=== PATIENT | female | born 1995 | race Caucasian/White ===

== ENCOUNTER 2018-02-13 10:02 | Inpatient (IN) | payer OTHER ==
[2018-02-13 10:17] VITALS: BMI 30.8
--- NOTE | 2018-02-13 10:43 | HP ---
COWS - Scale Resting Pulse: 1= [place] 81-100 Sweatin= Chills/Flushing Restless Observation: 3= Extraneous Movement Pupil Size: 1= Pupils >than Normal Bone or Joint Aches: 2= Severe Diffuse Aches Runny Nose/ Eye Tearin= Runny Nose/Eyes GI Upset > 30mins: 2= Nausea/Diarrhea Tremor Observation: 2= Slight Tremor Visible Yawning Observation: 1= 1-2x During Session Anxiety or Irritability: 2=Irritable/Anxious Goose Flesh Skin: 0=Smooth Skin COWS Score: 17 Admission [facility] Chief Complaint: i eed help to stop using heroin Allergies/Adverse Reactions: Allergies Allergy/AdvReac Type Severity Reaction Status Date / Time bupropion HCl Allergy Severe seizure Verified 02/13/18 10:35 [From Wellbutrin] History of Present Illness: this 23 years old female with heroin dependence,seeking detox,withdrawal symptom ,use to be on suboxone 8 mgs/2 mgs bid but did not take it for 2 weeks last treatment [facility] 12/01/14 to 12/06/14 also taking klonopin anxiety,depression,insomnia nicotine dependence longest period of sobriety 1 and half year hard of hearing for 2 years right Exam Limitations: No Limitations - Ebola screening Have you traveled outside of the country in the last 21 days: No Have you had contact with anyone from an Ebola affected area: No Have you been sick,other than usual withdrawal symptoms: No Do you have a fever: No - Review of Systems Constitutional: Chills, Loss of Appetite, Malaise, Night Sweats, Changes in sleep, Weakness EENT: reports: Tearing, Nose Congestion Respiratory: reports: No Symptoms reported Cardiac: reports: Palpitations GI: reports: Nausea, Poor Appetite, Vomiting, Abdominal cramping : reports: No Symptoms Reported Musculoskeletal: reports: Back Pain, Joint Pain, Joint Stiffness Integumentary: reports: Dryness Neuro: reports: Headache, Tremors Endocrine: reports: No Symptoms Reported Hematology: reports: No Symptoms Reported Psychiatric: reports: No Sypmtoms Reported, Judgement Intact, Mood/Affect Appropiate, Orientated x3, Agitated, Depressed Patient History - Patient Medical History Hx Anemia: No Hx Asthma: No Hx Chronic Obstructive Pulmonary Disease (COPD): No Hx Cancer: No Hx Cardiac Disorders: No Hx Congestive Heart Failure: No Hx Hypertension: No Hx Hypercholesterolemia: No Hx Pacemaker: No HX Cerebrovascular Accident: No Hx Seizures: Yes (1 month ago) Hx Dementia: No Hx Diabetes: No Hx Gastrointestinal Disorders: No Hx Liver Disease: No Hx Genitourinary Disorders: No Hx Sexually Transmitted Disorders: No Hx Renal Disease (ESRD): No Hx Thyroid Disease: No Hx Human Immunodeficiency Virus (HIV): No (negative) Hx Hepatitis C: Yes (no treatment) Hx Depression: Yes Hx Suicide Attempt: Yes (cutter) Hx Bipolar Disorder: No Hx Schizophrenia: No Other Medical History: no suicidal,no homicidal - Patient Surgical History Past Surgical History: No Hx Neurologic Surgery: No Hx Cataract Extraction: No Hx Cardiac Surgery: No Hx Lung Surgery: No Hx Breast Surgery: No Hx Breast Biopsy: No Hx Abdominal Surgery: No Hx Appendectomy: No Hx Cholecystectomy: No Hx Genitourinary Surgery: No Hx Section: No Hx Orthopedic Surgery: No Anesthesia Reaction: No - PPD History Previous Implant?: Yes Documented Results: Negative w/o proof Date: 08/01/14 Results: 0 mm PPD to be Administered?: Yes - Reproductive History Patient is a Female of Child Bearing Age (11 -55 yrs old): Yes Last Menstrual Period: 01/14/18 Patient : No - Smoking Cessation Smoking history: Current every day smoker Have you smoked in the past 12 months: Yes Aproximately how many cigarettes per day: 20 Hx Chewing Tobacco Use: No Initiated information on smoking cessation: Yes 'Breaking Loose' booklet given: 02/13/18 - Substance & Tx. History Hx Alcohol Use: No Hx Substance Use: Yes Substance Use Type: Heroin, Tranquilizers Hx Substance Use Treatment: Yes ([facility] 12/01/14 to 12/06/14) - Substances Abused Heroin Route: Injection Frequency: Daily Amount used: 10-15 bags Age of first use: 14 Date of Last Use: 02/12/18 Benzodiazepine (Klonopin) Route: Oral Frequency: 3-6 times per week Amount used: 2-4mg Age of first use: 23 Date of Last Use: 02/12/18 Family Disease History - Family Disease History Family Disease History: Diabetes: Father Admission Physical Exam BHS - Vital Signs Vital Signs: Vital Signs - 24 hr 02/13/18 10:10 Temperature 96.5 F L Pulse Rate 90 Respiratory 18 Rate Blood Pressure 116/67 - Physical General Appearance: Yes: Moderate Distress, Tremorous, Irritable, Sweating, Anxious HEENTM: Yes: Normal ENT Inspection, [place], Pharynx Normal Respiratory: Yes: Lungs Clear, Normal Breath Sounds, No Respiratory Distress Neck: Yes: Within Normal Limits, Supple, Trachea in good position Breast: Yes: Breast Exam Deferred Cardiology: Yes: Within Normal Limits, Regular Rhythm, Regular Rate, S1, S2 Abdominal: Yes: Within Normal Limits, Normal Bowel Sounds, Non Tender, Flat, Soft Genitourinary: Yes: Within Normal Limits Back: Yes: Muscle Spasm Musculoskeletal: Yes: Back pain, Joint Stiffness, Muscle Pain Extremities: Yes: Within Normal Limits, Normal Range of Motion, Tremors Neurological: Yes: gluer and slicer hand II-XII NML intact, Fully Oriented, Alert, Motor Strength 5/5 Integumentary: Yes: Dry, Track Hussein - Diagnostic (1) Opioid dependence with withdrawal Current Visit: Yes Status: Acute (2) Hepatitis C Current Visit: No Status: Acute (3) Nicotine dependence Current Visit: No Status: Chronic (4) Uncomplicated sedative, hypnotic or anxiolytic withdrawal Current Visit: Yes Status: Acute (5) Withdrawal seizures Current Visit: Yes Status: Acute (6) Depression Current Visit: Yes Status: Acute Cleared for Admission [facility] - Detox or Rehab [facility] Level of Care: Medically Managed Detox Regimen/Protocol: Methadone [facility] Breath Alcohol Content Breath Alcohol Content: 0 Urine Pregancy Test - Result Urine Test Results: Negative- NO Line Present Urine Drug Screen - Results Drug Screen Negative: No Urine Drug Screen Results: THC-Marijuana, OPI-Opiates, OXY-Oxycodone
[2018-02-13] MEDS ORDERED: ACETAMINOPHEN 325 MG TABLET (FP) PO PRN (10:54)
[2018-02-13] MEDS ORDERED: MAGNESIUM HYDROX 2400MG/30ML ORAL SUSPENSION 30 ML CUP PO PRN (10:54)
[2018-02-13] MEDS ORDERED: MAGNESIUM CITRATE 300 ML BOTTLE PO PRN (10:54)
[2018-02-13] MEDS ORDERED: MAG HYDROX/AL HYDROX/SIMETH 30 ML UNIT-DOSE CUP PO PRN (10:54)
[2018-02-13] MEDS ORDERED: IBUPROFEN 400 MG TABLET (FP) PO PRN (10:54)
[2018-02-13] MEDS ORDERED: MENTHOL/PHENOL 1 EACH UD MM PRN (10:54)
[2018-02-13] MEDS ORDERED: P-EPHED 60MG/TRIPROLIDI 2.5MG TABLET PO PRN (10:54)
[2018-02-13] MEDS ORDERED: guaiFENesin/D-METHORPHAN HB 10 ML UNIT-DOSE CUPS PO PRN (10:54)
[2018-02-13] MEDS ORDERED: METHADONE HCL 10 MG TABLET (FOR DETOX USE ONLY) PO ONE ×2 (11:35→23:00)
[2018-02-13] MEDS: CYCLOBENZAPRINE HCL 10 MG TABLET (FP) PO PRN ×2 (12:18→22:22)
[2018-02-13] MEDS: diazePAM 5 MG TABLET PO PRN ×3 (12:18→22:22)
--- NOTE | 2018-02-13 12:53 | CONSULT ---
[facility] Psychiatric Consult - Data Date of interview: 02/13/18 Admission source: [facility] Identifying data: Patient is a 23 year old single female, without children, domiciled,and is currently unemployed (took leave of absense). This is one of multiple admissions for patient. Patient admitted to for opiate and benzodiazepine dependence. Substance Abuse History: - Smoking Cessation. Smoking history: Current every day smoker. Have you smoked in the past 12 months: Yes. Aproximately how many cigarettes per day: 20. Hx Chewing Tobacco Use: No. Initiated information on smoking cessation: Yes. 'Breaking Loose' booklet given: 02/13/18. - Substance & Tx. History. Hx Alcohol Use: No. Hx Substance Use: Yes. Substance Use Type : Heroin, Tranquilizers. Hx Substance Use Treatment: Yes ([facility] 12[facility] Heorin: uses 12 bags daily. Benzodiazepine- klonopin 4-5mg couple times per week. Medical History: Seizures, Hep C Psychiatric History: Patient's first psychiatric contact was approximately 4-5 years for anxiety and depression in [facility]. Current outpatient psychiatric care is provided AT[facility] in [facility]. She is prescribed prozac 40mg + Gabapentin 300mg BID. Patient reports sub-optimal adherence to medication. Patient denies h/o psychiatric hospitalization and suicide attempt. Patient currently reports feeling sad and anxious. Physical/Sexual Abuse/Trauma History: denies. Mental Status Exam - Mental Status Exam Alert and Oriented to: Time, Place, Person Cognitive Function: Good Patient Appearance: Well Groomed Mood: Hopeful Affect: Appropriate, Mood Congruent Patient Behavior: Appropriate, Cooperative Speech Pattern: Clear, Appropriate Voice Loudness: Normal Thought Process: Intact, Goal Oriented Thought Disorder: Not Present Hallucinations: Denies Suicidal Ideation: Denies Homicidal Ideation: Denies Insight/Judgement: Poor Sleep: Fair Appetite: Fair Muscle strength/Tone: Normal Gait/Station: Normal Psychiatric Findings - Problem List ([place] 1, 2,3) (1) Opioid dependence with withdrawal Current Visit: Yes Status: Acute (2) Substance induced mood disorder Current Visit: Yes Status: Acute (3) Opiate dependence Current Visit: Yes Status: Acute - Initial Treatment Plan Initial Treatment Plan: Psychoeducation provided. Detoxification in progress. Will order prozac 20mg (reduce dose as per patient's request. will start on 02/14) and Gabapentin 300mg BID. Benefits and side effects discussed. Verbal consent given.
[2018-02-13] MEDS: GABAPENTIN 300 MG CAPSULE (FP) PO SCH ×2 (13:47→22:22)
[2018-02-13 18:11] LABS: URINE APPEARANCE SLCLOUDY; URINE BILIRUBIN NEGATIVE (<2.0 mg/dL); URINE COLOR DKYELLOW; URINE GLUCOSE (UA) NEGATIVE (NEGATIVE); URINE KETONE NEGATIVE (NEGATIVE); URINE LEUK ESTERASE TRACE (NEGATIVE); URINE NITRITE NEGATIVE (NEGATIVE); URINE PROTEIN NEGATIVE (NEGATIVE); URINE UROBILINOGEN NEGATIVE mg/dL (0.2-1.0)
[2018-02-13 18:52] LABS: EPI CELLS MODERATE /HPF (FEW); URINE BACTERIA FEW /hpf (NONE SEEN); URINE HYALINE CAST 1 /lpf; URINE MUCUS MODERATE
[2018-02-13] MEDS ORDERED: MELATONIN 5 MG TABLETS PO PRN (22:00)
[2018-02-13] MEDS: cloNIDine HCL 0.1 MG TABLET PO SCH (22:22)
[2018-02-13] MEDS: THIAMINE HCL 100 MG TABLET (FP) PO SCH (22:23)
[2018-02-14] MEDS ORDERED: METHADONE HCL 10 MG TABLET (FOR DETOX USE ONLY) PO ONE (10:00)
[2018-02-14 10:25] LABS: HEMATOCRIT 40.2 % (32.4-45.2); HEMOGLOBIN 13.3 GM/dL (10.7-15.3); MCH 28.8 pg (25.7-33.7); MCHC 33.2 g/dl (32.0-36.0); MEAN CELL VOLUME 86.7 fl (80-96); MEAN PLT VOLUME 9.1 fl (7.5-11.1); PLATELET COUNT 189 K/MM3 (134-434); RBC 4.63 M/mm3 (3.60-5.2); RDW 13.8 % (11.6-15.6); WHITE BLOOD COUNT 5.3 K/mm3 (4.0-10.0)
[2018-02-14] MEDS: PRENATAL VITAMINS W/ FOLIC ACID TABLET (FP) PO SCH (10:39)
[2018-02-14] MEDS: cloNIDine HCL 0.1 MG TABLET PO SCH ×2 (10:39→21:51)
[2018-02-14] MEDS: diazePAM 5 MG TABLET PO PRN ×3 (10:39→22:35)
[2018-02-14] MEDS: FLUoxetine HCL 20 MG CAPSULE (FP) PO SCH (10:39)
[2018-02-14] MEDS: GABAPENTIN 300 MG CAPSULE (FP) PO SCH ×2 (10:39→22:33)
[2018-02-14 11:05] LABS: ALBUMIN 3.7 g/dl (3.4-5.0); ALK PHOS 129 U/L (45-117); ANION GAP 11 MMOL/L (8-16); BILIRUBIN,TOTAL 0.4 mg/dL (0.2-1); BLOOD UREA NITROGEN 12 mg/dL (7-18); CALCIUM 9.4 mg/dL (8.5-10.1); CHLORIDE 105 mmol/L (98-107); CO2 23 mmol/L (21-32); CREATININE 0.8 mg/dL (0.55-1.3); GLUCOSE,RANDOM 81 mg/dL (74-106); POTASSIUM 4.3 mmol/L (3.5-5.1); SGOT/AST 24 U/L (15-37); SGPT/ALT 62 U/L (13-61); SODIUM 138 mmol/L (136-145); TOT PROT 7.4 g/dl (6.4-8.2)
--- NOTE | 2018-02-14 11:07 | EKG ---
Test Reason : Blood Pressure : / mmHG Vent. Rate : 071 BPM Atrial Rate : 071 BPM P-R Int : 152 ms QRS Dur : 084 ms QT Int : 410 ms P-R-T Axes : 054 031 034 degrees QTc Int : 445 ms NORMAL SINUS RHYTHM NORMAL ECG NO PREVIOUS ECGS AVAILABLE Confirmed by Getachew Chong MD ([id number]) on 02/14/2018 11:07:18 AM Referred By: Confirmed By:Getachew Chong MD
--- NOTE | 2018-02-14 12:01 | PN ---
S COWS - Scale Resting Pulse: 0= [place] 80 or Below Sweatin=Flushed/Facial Moisture Restless Observation: 1= Difficult to Sit Still Pupil Size: 0= Normal to Room Light Bone or Joint Aches: 2= Severe Diffuse Aches Runny Nose/ Eye Tearin= Runny Nose/Eyes GI Upset > 30mins: 2= Nausea/Diarrhea Tremor Observation of Outstretched Hands: 2= Slight Tremor Visible Yawning Observation: 1= 1-2x During Session Anxiety or Irritability: 2=Irritable/Anxious Goose Flesh Skin: 3=Piloerection COWS Score: 17 S Progress Note (SOAP) Subjective: irritable agitation teary eyes sweats body aches interrupted sleep Objective: 02/14/18 12:00 Vital Signs Temperature 98.1 F 02/14/18 09:25 Pulse Rate 65 02/14/18 09:25 Respiratory Rate 18 02/14/18 09:25 Blood Pressure 108/66 02/14/18 09:25 O2 Sat by Pulse Oximetry (%) Laboratory Tests 02/13/18 02/13/18 02/14/18 11:50 15:25 06:00 WBC 5.3 RBC 4.63 Hgb 13.3 Hct 40.2 MCV 86.7 MCH 28.8 MCHC 33.2 RDW 13.8 Plt Count 189 D MPV 9.1 Sodium Potassium Chloride Carbon Dioxide Anion Gap BUN Creatinine Creat Clearance w eGFR Random Glucose Calcium Total Bilirubin AST ALT Alkaline Phosphatase Total Protein Albumin Urine Color Dkyellow Urine Appearance Slcloudy Urine pH 5.0 Ur Specific [place] 1.024 Urine Protein Negative Urine Glucose (UA) Negative Urine Ketones Negative Urine Blood Negative Urine Nitrite Negative Urine Bilirubin Negative Urine Urobilinogen Negative Ur Leukocyte Esterase Trace Urine WBC (Auto) 25 Urine RBC (Auto) 1 Ur Epithelial Cells Moderate Urine Bacteria Few Hyaline Casts 1 Urine Mucus Moderate RPR Titer HIV 1&2 Antibody Screen Negative HIV P24 Antigen Negative 02/14/18 02/14/18 06:00 06:00 WBC RBC Hgb Hct MCV MCH MCHC RDW Plt Count MPV Sodium 138 Potassium 4.3 Chloride 105 Carbon Dioxide 23 Anion Gap 11 BUN 12 Creatinine 0.8 Creat Clearance w eGFR > 60 Random Glucose 81 Calcium 9.4 Total Bilirubin 0.4 AST 24 ALT 62 H Alkaline Phosphatase 129 H Total Protein 7.4 Albumin 3.7 Urine Color Urine Appearance Urine pH Ur Specific [place] Urine Protein Urine Glucose (UA) Urine Ketones Urine Blood Urine Nitrite Urine Bilirubin Urine Urobilinogen Ur Leukocyte Esterase Urine WBC (Auto) Urine RBC (Auto) Ur Epithelial Cells Urine Bacteria Hyaline Casts Urine Mucus RPR Titer Nonreactive HIV 1&2 Antibody Screen HIV P24 Antigen aaox3 ambulating no acute distress Assessment: 02/14/18 12:00 withdrawal sx Plan: continue detox increase fluids
[2018-02-14] MEDS: THIAMINE HCL 100 MG TABLET (FP) PO SCH (22:33)
[2018-02-14] MEDS: CYCLOBENZAPRINE HCL 10 MG TABLET (FP) PO PRN (22:36)
[2018-02-15] MEDS ORDERED: METHADONE HCL 5 MG TABLET (FOR DETOX USE ONLY) PO ONE (10:00)
[2018-02-15] MEDS: diazePAM 5 MG TABLET PO PRN ×4 (10:09→22:56)
[2018-02-15] MEDS: cloNIDine HCL 0.1 MG TABLET PO SCH ×2 (10:10→22:23)
[2018-02-15] MEDS: GABAPENTIN 300 MG CAPSULE (FP) PO SCH ×2 (10:10→22:24)
[2018-02-15] MEDS: PRENATAL VITAMINS W/ FOLIC ACID TABLET (FP) PO SCH (10:10)
[2018-02-15] MEDS: FLUoxetine HCL 20 MG CAPSULE (FP) PO SCH (10:10)
--- NOTE | 2018-02-15 11:53 | PN ---
[facility] COWS - Scale Resting Pulse: 0= [place] 80 or Below Sweatin=Flushed/Facial Moisture Restless Observation: 1= Difficult to Sit Still Pupil Size: 0= Normal to Room Light Bone or Joint Aches: 2= Severe Diffuse Aches Runny Nose/ Eye Tearin= Nasal Congestion GI Upset > 30mins: 1= Stomach Cramp Tremor Observation of Outstretched Hands: 2= Slight Tremor Visible Yawning Observation: 1= 1-2x During Session Anxiety or Irritability: 2=Irritable/Anxious Goose Flesh Skin: 3=Piloerection COWS Score: 15 BHS Progress Note (SOAP) Subjective: restless agitation anxiety sweats irritable stomach cramp Objective: 02/15/18 11:52 Vital Signs Temperature 98.1 F 02/15/18 09:13 Pulse Rate 69 02/15/18 09:13 Respiratory Rate 18 02/15/18 09:13 Blood Pressure 106/56 L 02/15/18 09:13 O2 Sat by Pulse Oximetry (%) Laboratory Tests 02/13/18 02/13/18 02/14/18 11:50 15:25 06:00 WBC 5.3 RBC 4.63 Hgb 13.3 Hct 40.2 MCV 86.7 MCH 28.8 MCHC 33.2 RDW 13.8 Plt Count 189 D MPV 9.1 Sodium Potassium Chloride Carbon Dioxide Anion Gap BUN Creatinine Creat Clearance w eGFR Random Glucose Calcium Total Bilirubin AST ALT Alkaline Phosphatase Total Protein Albumin Urine Color Dkyellow Urine Appearance Slcloudy Urine pH 5.0 Ur Specific [place] 1.024 Urine Protein Negative Urine Glucose (UA) Negative Urine Ketones Negative Urine Blood Negative Urine Nitrite Negative Urine Bilirubin Negative Urine Urobilinogen Negative Ur Leukocyte Esterase Trace Urine WBC (Auto) 25 Urine RBC (Auto) 1 Ur Epithelial Cells Moderate Urine Bacteria Few Hyaline Casts 1 Urine Mucus Moderate RPR Titer HIV 1&2 Antibody Screen Negative HIV P24 Antigen Negative 02/14/18 02/14/18 06:00 06:00 WBC RBC Hgb Hct MCV MCH MCHC RDW Plt Count MPV Sodium 138 Potassium 4.3 Chloride 105 Carbon Dioxide 23 Anion Gap 11 BUN 12 Creatinine 0.8 Creat Clearance w eGFR > 60 Random Glucose 81 Calcium 9.4 Total Bilirubin 0.4 AST 24 ALT 62 H Alkaline Phosphatase 129 H Total Protein 7.4 Albumin 3.7 Urine Color Urine Appearance Urine pH Ur Specific [place] Urine Protein Urine Glucose (UA) Urine Ketones Urine Blood Urine Nitrite Urine Bilirubin Urine Urobilinogen Ur Leukocyte Esterase Urine WBC (Auto) Urine RBC (Auto) Ur Epithelial Cells Urine Bacteria Hyaline Casts Urine Mucus RPR Titer Nonreactive HIV 1&2 Antibody Screen HIV P24 Antigen aaox3 ambulating no acute distress Assessment: 02/15/18 11:53 withdrawal sx Plan: continue detox increase fluids
[2018-02-15] MEDS: NICOTINE POLACRILEX 2 MG GUM BUC PRN ×2 (14:46→17:34)
[2018-02-15] MEDS: CYCLOBENZAPRINE HCL 10 MG TABLET (FP) PO PRN (22:24)
[2018-02-15] MEDS: THIAMINE HCL 100 MG TABLET (FP) PO SCH (22:24)
--- NOTE | 2018-02-16 09:43 | PN ---
[facility] Progress Note Note: Vital Signs Temperature 97.7 F 02/16/18 06:50 Pulse Rate 62 02/16/18 06:50 Respiratory Rate 16 02/16/18 06:50 Blood Pressure 107/44 L 02/16/18 06:50 O2 Sat by Pulse Oximetry (%) Laboratory Last Values WBC 5.3 K/mm3 (4.0-10.0) 02/14/18 06:00 RBC 4.63 M/mm3 (3.60-5.2) 02/14/18 06:00 Hgb 13.3 GM/dL (10.7-15.3) 02/14/18 06:00 Hct 40.2 % (32.4-45.2) 02/14/18 06:00 MCV 86.7 fl (80-96) 02/14/18 06:00 MCH 28.8 pg (25.7-33.7) 02/14/18 06:00 MCHC 33.2 g/dl (32.0-36.0) 02/14/18 06:00 RDW 13.8 % (11.6-15.6) 02/14/18 06:00 Plt Count 189 K/MM3 (134-434) D 02/14/18 06:00 MPV 9.1 fl (7.5-11.1) 02/14/18 06:00 Sodium 138 mmol/L (136-145) 02/14/18 06:00 Potassium 4.3 mmol/L (3.5-5.1) 02/14/18 06:00 Chloride 105 mmol/L (98-107) 02/14/18 06:00 Carbon Dioxide 23 mmol/L (21-32) 02/14/18 06:00 Anion Gap 11 MMOL/L (8-16) 02/14/18 06:00 BUN 12 mg/dL (7-18) 02/14/18 06:00 Creatinine 0.8 mg/dL (0.55-1.3) 02/14/18 06:00 Creat Clearance w eGFR > 60 (>60) 02/14/18 06:00 Random Glucose 81 mg/dL (74-106) 02/14/18 06:00 Calcium 9.4 mg/dL (8.5-10.1) 02/14/18 06:00 Total Bilirubin 0.4 mg/dL (0.2-1) 02/14/18 06:00 AST 24 U/L (15-37) 02/14/18 06:00 ALT 62 U/L (13-61) H 02/14/18 06:00 Alkaline Phosphatase 129 U/L (45-117) H 02/14/18 06:00 Total Protein 7.4 g/dl (6.4-8.2) 02/14/18 06:00 Albumin 3.7 g/dl (3.4-5.0) 02/14/18 06:00 Urine Color Dkyellow 02/13/18 15:25 Urine Appearance Slcloudy 02/13/18 15:25 Urine pH 5.0 (5.0-8.0) 02/13/18 15:25 Ur Specific [place] 1.024 (1.001-1.035) 02/13/18 15:25 Urine Protein Negative (NEGATIVE) 02/13/18 15:25 Urine Glucose (UA) Negative (NEGATIVE) 02/13/18 15:25 Urine Ketones Negative (NEGATIVE) 02/13/18 15:25 Urine Blood Negative (NEGATIVE) 02/13/18 15:25 Urine Nitrite Negative (NEGATIVE) 02/13/18 15:25 Urine Bilirubin Negative (<2.0 mg/dL) 02/13/18 15:25 Urine Urobilinogen Negative mg/dL (0.2-1.0) 02/13/18 15:25 Ur Leukocyte Esterase Trace (NEGATIVE) 02/13/18 15:25 Urine WBC (Auto) 25 /hpf (3-5) 02/13/18 15:25 Urine RBC (Auto) 1 /hpf (0-3) 02/13/18 15:25 Ur Epithelial Cells Moderate /HPF (FEW) 02/13/18 15:25 Urine Bacteria Few /hpf (NONE SEEN) 02/13/18 15:25 Hyaline Casts 1 /lpf 02/13/18 15:25 Urine Mucus Moderate 02/13/18 15:25 RPR Titer Nonreactive (NONREACTIVE) 02/14/18 06:00 HIV 1&2 Antibody Screen Negative 02/13/18 11:50 HIV P24 Antigen Negative 02/13/18 11:50 Patient feeling anxious, body aches, constipation Aox3 no distress no adventitious breath sounds ABD non-tender, non- distended full ROM, ambulating in the unit withdrawal sx constipation Increase PO fluids MOM ambulate flexeril PRN continue detox continue to monitor
[2018-02-16] MEDS ORDERED: METHADONE HCL 5 MG TABLET (FOR DETOX USE ONLY) PO ONE (10:00)
[2018-02-16] MEDS: GABAPENTIN 300 MG CAPSULE (FP) PO SCH ×2 (10:33→22:23)
[2018-02-16] MEDS: cloNIDine HCL 0.1 MG TABLET PO SCH ×2 (10:33→22:23)
[2018-02-16] MEDS: FLUoxetine HCL 20 MG CAPSULE (FP) PO SCH (10:33)
[2018-02-16] MEDS: PRENATAL VITAMINS W/ FOLIC ACID TABLET (FP) PO SCH (10:33)
[2018-02-16] MEDS: CYCLOBENZAPRINE HCL 10 MG TABLET (FP) PO PRN ×2 (10:33→22:23)
[2018-02-16] MEDS: diazePAM 5 MG TABLET PO PRN (10:36)
[2018-02-16] MEDS: hydrOXYzine PAMOATE 50 MG CAPSULE (FP) PO PRN ×2 (13:45→22:22)
[2018-02-16] MEDS: BACITRACIN 0.9 GM PACKET TP SCH ×2 (14:31→22:22)
--- NOTE | 2018-02-16 14:40 | PN ---
Psychiatric Progress Note Vital Signs: Vital Signs Period Temp Pulse Resp BP Sys/Montero Pulse Ox Last 24 Hr 97.7 F-99 F 62-134 16-20 90-107/44-72 Date of Session: 02/16/18 Chief Complaint:: "I can't sleep." HPI: Patient admitted to for opiate and benzodiazepine dependence. ROS: Seizures, Hep C Current Medications: Active Medications Generic Name Dose Route Start Last Admin Trade Name Freq PRN Reason Stop Dose Admin Acetaminophen 650 mg 02/13/18 10:54 Tylenol - PO Q4H PRN FEVER Al Hydroxide/Mg Hydroxide 30 ml 02/13/18 10:54 Mylanta Oral Suspension - PO Q6H PRN DYSPEPSIA Bacitracin 0.9 gm 02/16/18 14:15 02/16/18 14:31 Bacitracin - TP 0.9 gm TID EARL Administration Clonidine 0.1 mg 02/13/18 22:00 02/16/18 10:33 Catapres - PO 0.1 mg BID EARL Administration Cyclobenzaprine HCl 10 mg 02/13/18 10:58 02/16/18 10:33 Flexeril - PO 10 mg TID PRN Administration MUSCLE SPASMS Eucalyptus/Menthol/Phenol/Sorbitol 1 each 02/13/18 10:54 Cepastat Lozenge - MM Q4H PRN SORE THROAT Fluoxetine HCl 20 mg 02/14/18 10:00 02/16/18 10:33 Prozac - PO 20 mg DAILY EARL Administration Gabapentin 300 mg 02/13/18 14:00 02/16/18 10:33 Neurontin - PO 300 mg BID EARL Administration Guaifenesin 10 ml 02/13/18 10:54 Robitussin Dm - PO Q6H PRN COUGH Hydroxyzine Pamoate 50 mg 02/16/18 08:47 02/16/18 13:45 Vistaril - PO 50 mg Q4H PRN Administration FOR ITCHING Ibuprofen 400 mg 02/13/18 10:54 Motrin - PO Q6H PRN PAIN LEVEL 4-6 Loperamide HCl 4 mg 02/13/18 10:54 Imodium - PO Q6H PRN DIARRHEA Magnesium Citrate 300 ml 02/13/18 10:54 Citroma - PO Q48H PRN CONSTIPATION Magnesium Hydroxide 30 ml 02/13/18 10:54 Milk Of Magnesia - PO DAILY PRN CONSTIPATION Melatonin 5 mg 02/13/18 22:00 02/15/18 22:25 Melatonin PO 5 mg HS PRN Administration INSOMNIA Methadone HCl 5 mg 02/18/18 06:00 Dolophine - PO 02/18/18 06:01 ONCE@0600 ONE Methadone HCl 10 mg 02/17/18 10:00 Dolophine - PO 02/17/18 10:01 ONCE ONE Nicotine Polacrilex 2 mg 02/13/18 10:54 02/15/18 17:34 Nicorette Gum - BUC 2 mg Q2H PRN Administration NICOTINE REPLACEMENT RX Multivit/Folic Acid/Iron 1 tab 02/14/18 10:00 02/16/18 10:33 Vitamins (Sjr) - PO 1 tab DAILY EARL Administration Pseudoephedrine/Triprolidine 1 combo 02/13/18 10:54 Actifed - PO TID PRN NASAL CONGESTION Thiamine HCl 100 mg 02/13/18 22:00 02/15/18 22:24 Vitamin B1 - PO 100 mg HS EARL Administration Medication(s) Change(s): Yes. Will d/c melatonin 3mg and order ambien 10mg qhs. Current Side Effect: No Lab tests ordered: No Lab tests reviewed: Yes Provider note:: Chart reviewed. Patient c/o poor sleep. Will discontinue melatonin 5mg. Pt. reports favorable effects when taking ambien. She has been prescribed ambien 10mg while in detox. Will order ambien 10mg qhs prn. Patient made aware of the risk of parasomnia. Verbal consent given. Total face to face time:: 25 Mental Status Exam - Mental Status Exam Alert and Oriented to: Time, Place, Person Cognitive Function: Good Patient Appearance: Well Groomed Mood: Hopeful, Euthymic Affect: Appropriate, Mood Congruent Patient Behavior: Appropriate, Cooperative Speech Pattern: Appropriate Voice Loudness: Normal Thought Process: Intact, Goal Oriented Thought Disorder: Not Present Hallucinations: Denies Suicidal Ideation: Denies Homicidal Ideation: Denies Insight/Judgement: Poor Sleep: Poorly Appetite: Fair Muscle strength/Tone: Normal Gait/Station: Normal Psychiatric Treatment Plan - Problem List (1) Opioid dependence with withdrawal Current Visit: Yes (2) Substance induced mood disorder Current Visit: Yes (3) Opiate dependence Current Visit: Yes (4) Insomnia Current Visit: Yes
[2018-02-16] MEDS: NICOTINE POLACRILEX 2 MG GUM BUC PRN (16:40)
[2018-02-16] MEDS: ZOLPIDEM TARTRATE 10 MG TABLET (PARK CARE ONLY) PO PRN (22:22)
[2018-02-16] MEDS: THIAMINE HCL 100 MG TABLET (FP) PO SCH (22:23)
[2018-02-17] MEDS: CYCLOBENZAPRINE HCL 10 MG TABLET (FP) PO PRN (05:37)
[2018-02-17] MEDS: BACITRACIN 0.9 GM PACKET TP SCH ×2 (05:37→22:33)
[2018-02-17] MEDS: hydrOXYzine PAMOATE 50 MG CAPSULE (FP) PO PRN ×4 (05:38→22:34)
[2018-02-17] MEDS ORDERED: METHADONE HCL 10 MG TABLET (FOR DETOX USE ONLY) PO ONE (10:00)
[2018-02-17] MEDS: FLUoxetine HCL 20 MG CAPSULE (FP) PO SCH (10:39)
[2018-02-17] MEDS: GABAPENTIN 300 MG CAPSULE (FP) PO SCH ×2 (10:39→22:33)
[2018-02-17] MEDS: cloNIDine HCL 0.1 MG TABLET PO SCH ×2 (10:39→22:33)
[2018-02-17] MEDS: PRENATAL VITAMINS W/ FOLIC ACID TABLET (FP) PO SCH (10:40)
[2018-02-17] MEDS: LOPERAMIDE HCL 2 MG CAPSULE PO PRN ×2 (10:42→17:45)
--- NOTE | 2018-02-17 13:54 | PN ---
[facility] Progress Note Note: PATIENT REPORTS SHE FEELS BETTER. DENIES HEADACHE, SHAKES, BODY ACHE AND SWEATING. Vital Signs Temperature 97.7 F 02/17/18 09:32 Pulse Rate 67 02/17/18 09:32 Respiratory Rate 18 02/17/18 09:32 Blood Pressure 114/71 02/17/18 09:32 O2 Sat by Pulse Oximetry (%) Laboratory Tests 02/13/18 02/13/18 02/14/18 11:50 15:25 06:00 WBC 5.3 RBC 4.63 Hgb 13.3 Hct 40.2 MCV 86.7 MCH 28.8 MCHC 33.2 RDW 13.8 Plt Count 189 D MPV 9.1 Sodium Potassium Chloride Carbon Dioxide Anion Gap BUN Creatinine Creat Clearance w eGFR Random Glucose Calcium Total Bilirubin AST ALT Alkaline Phosphatase Total Protein Albumin Urine Color Dkyellow Urine Appearance Slcloudy Urine pH 5.0 Ur Specific [place] 1.024 Urine Protein Negative Urine Glucose (UA) Negative Urine Ketones Negative Urine Blood Negative Urine Nitrite Negative Urine Bilirubin Negative Urine Urobilinogen Negative Ur Leukocyte Esterase Trace Urine WBC (Auto) 25 Urine RBC (Auto) 1 Ur Epithelial Cells Moderate Urine Bacteria Few Hyaline Casts 1 Urine Mucus Moderate RPR Titer HIV 1&2 Antibody Screen Negative HIV P24 Antigen Negative 02/14/18 02/14/18 06:00 06:00 WBC RBC Hgb Hct MCV MCH MCHC RDW Plt Count MPV Sodium 138 Potassium 4.3 Chloride 105 Carbon Dioxide 23 Anion Gap 11 BUN 12 Creatinine 0.8 Creat Clearance w eGFR > 60 Random Glucose 81 Calcium 9.4 Total Bilirubin 0.4 AST 24 ALT 62 H Alkaline Phosphatase 129 H Total Protein 7.4 Albumin 3.7 Urine Color Urine Appearance Urine pH Ur Specific [place] Urine Protein Urine Glucose (UA) Urine Ketones Urine Blood Urine Nitrite Urine Bilirubin Urine Urobilinogen Ur Leukocyte Esterase Urine WBC (Auto) Urine RBC (Auto) Ur Epithelial Cells Urine Bacteria Hyaline Casts Urine Mucus RPR Titer Nonreactive HIV 1&2 Antibody Screen HIV P24 Antigen ALERT AND ORIENTED SKIN WARM AND DRY AMB AD PETE EXT FULL ROM A/P: WITHDRAWAL SYNDROME CONTINUE DETOX ENCOURAGE ORAL FLUIDS CONTINUE TO MONITOR
[2018-02-17] MEDS: THIAMINE HCL 100 MG TABLET (FP) PO SCH (22:33)
[2018-02-17] MEDS: ZOLPIDEM TARTRATE 10 MG TABLET (PARK CARE ONLY) PO PRN (22:36)
[2018-02-17 22:39] VITALS: TEMP 98.1
[2018-02-18] MEDS ORDERED: METHADONE HCL 5 MG TABLET (FOR DETOX USE ONLY) PO ONE (06:00)
[2018-02-18] MEDS: CYCLOBENZAPRINE HCL 10 MG TABLET (FP) PO PRN (06:03)
[2018-02-18] MEDS: hydrOXYzine PAMOATE 50 MG CAPSULE (FP) PO PRN (06:03)
[2018-02-18] MEDS: LOPERAMIDE HCL 2 MG CAPSULE PO PRN (06:48)
[2018-02-18] MEDS: BACITRACIN 0.9 GM PACKET TP SCH (06:49)
[2018-02-18 06:50] VITALS: BP 113/65; PULSE 77
--- NOTE | 2018-02-18 13:54 | DS ---
[facility] Detox Discharge Summary Admission Date: 02/13/18 Discharge Date: 02/18/18 - History Present History: Opioid Dependence - Physical Exam Results Vital Signs: Vital Signs Temperature 98.1 F 02/18/18 06:00 Pulse Rate 77 02/18/18 06:00 Respiratory Rate 18 02/18/18 06:00 Blood Pressure 113/65 02/18/18 06:00 O2 Sat by Pulse Oximetry (%) Pertinent Admission Physical Exam Findings: PATIENT COMPLETED DETOX. TOLERATED TREATMENT WELL. CLINICALLY STABLE AND NO SI/ HI REPORTED. PATIENT ENCOURAGED TO ATTEND GROUP MEETINGS TO PREVENT RELAPSE AND GO TO ER IF SYMPTOMS OF WITHDRAWAL OCCUR. DISCHARGE INSTRUCTIONS PROVIDED BY STAFF. - Treatment Hospital Course: Detox Protocol Followed, Detoxed Safely, Responded well, Discharged Condition Good - Medication Discharge Medications: Ambulatory Orders Fluoxetine HCl [Prozac -] 60 mg PO DAILY 02/13/18 Gabapentin [Neurontin -] 300 mg PO BID 02/13/18 - Diagnosis (1) Opioid dependence with withdrawal Status: Resolved - AMA Did Patient Leave Against Medical Advice: No
== END 2018-02-18 06:51 | disposition home or self-care (01) | DRG 773 ==
LOC: YASAS 10:02 → Y6N 11:02
PROC: HZ2ZZZZ Detoxification Services for Substance Abuse Treatment (ICD-10-PCS; principal; 2018-02-13)
DX: F11.23 Opioid dependence with withdrawal (principal); F13.230 Sedative, hypnotic or anxiolytic dependence with withdrawal, uncomplicated; F14.20 Cocaine dependence, uncomplicated; F17.210 Nicotine dependence, cigarettes, uncomplicated; F19.24 Other psychoactive substance dependence with psychoactive substance-induced mood disorder; F32.9 Major depressive disorder, single episode, unspecified; F41.8 Other specified anxiety disorders; G40.509 Epileptic seizures related to external causes, not intractable, without status epilepticus; G47.00 Insomnia, unspecified; K59.00 Constipation, unspecified; Z91.5 Personal history of self-harm
CPT/HCPCS: 36415; 80053; 81003; 81015; 85027; 86593; 87389; 93005; 93010; J0735